=== PATIENT | male | born 1950 | race Caucasian/White ===

== ENCOUNTER → 2016-05-25 | Outpatient (CLI) | payer SELFPAY ==
--- NOTE | 2016-05-25 14:20 | Diagnostic Imaging Report ---
Scrotal ultrasound. INDICATION: Testicular pain. FINDINGS: Spectral and color flow imaging of the testicles was performed. The previous scrotal ultrasound exam performed on 02/09/2016 noted a small area of altered echogenicity within the right testicle. This measured 6 x 4 mm. That finding is not as conspicuous on this exam. This may have in fact represented a small contusion of the testicle. There is no abnormal vascularity in this area to suggest a neoplastic mass. The right testicle is otherwise unremarkable. The previous study also noted a 3.2 x 2.4 x 3.1 cm cyst superior and medial to the right testicle. That finding is again evident and now measures 3 x 3 x 2 cm. This cyst has a generally benign appearance. The left testicle and epididymis are unremarkable. There is no sign of hydrocele. IMPRESSION: 1. The small area of altered echogenicity within the right testicle seen on the previous exam is not as conspicuous on this study. The cyst along the superior medial aspect of the testicle noted on the prior study is minimally smaller on this exam. 2. The left testicle is unremarkable. 3. There is no sign of an acute abnormality of either testicle. Dictated by: Dictated on workstation # [id number]
== END ==
LOC: RAD 12:49
PROVIDERS: ATTEND Nurse Practitioner Family
DX: N50.819 Testicular pain, unspecified (principal)
CPT/HCPCS: 76870

== ENCOUNTER → 2022-04-06 | Outpatient (CLI) | payer OTHER, MEDICARE ==
[2022-04-06 12:52] LABS: BILIRUBIN,URINE NEGATIVE (NEGATIVE); CLARITY,URINE CLEAR; COLOR,URINE YELLOW; GLUCOSE, URINE (UA) NEGATIVE (NEGATIVE); KETONES,URINE NEGATIVE (NEGATIVE); LEUKOCYTE ESTERASE ,URINE 3+ (NEGATIVE); NITRITE,URINE NEGATIVE (NEGATIVE); PROTEIN,URINE NEGATIVE (NEGATIVE)
[2022-04-06 13:03] LABS: BACTERIA,URINE MODERATE /HPF
== END ==
LOC: HOSHH 12:45
PROVIDERS: ATTEND Nurse Practitioner
DX: J44.9 Chronic obstructive pulmonary disease, unspecified (principal); I10 Essential (primary) hypertension; J06.9 Acute upper respiratory infection, unspecified; L40.9 Psoriasis, unspecified
CPT/HCPCS: 81000; 87077; 87088; 87186